=== PATIENT | female | born 1955 ===

== ENCOUNTER 2020-02-02 05:20 | Day surgery (SDC) | payer OTHER ==
[~2020-02-02 05:20] MED LIST: ASPIR 8181 MG PO; ATACAND HCT 321 EAC1 PO; CRESTOR5 MG PO; PROTONIX40 MG PO; SINGULAIR10 MG PO; SYNTHROID75 MCG PO; ZYRTEC10 MG PO
[2020-02-02] MEDS ORDERED: DERMOPLAST PAIN78 GM TOP (09:04)
== END 2020-02-02 15:25 | disposition home or self-care (01) ==
LOC: CIR.AMB 05:20 → ADM 10:00 → CIR.AMB 10:00
DX: D26.1 Other benign neoplasm of corpus uteri (principal); N84.0 Polyp of corpus uteri